=== PATIENT | female | born 1945 | race Caucasian/White ===

== ENCOUNTER 2017-08-14 21:33 | Observation (INO) | payer OTHER ==
[2017-08-14] MEDS ORDERED: NS 1,000 ML IV ONE (22:27)
--- NOTE | 2017-08-14 22:27 | EDPHY ---
H & P Stated Complaint: cold symtpoms x 4 days; had ES APAP 2 hrs [employer] HPI/ROS: HPI CHIEF COMPLAINT: Cough, fever, muscle aches, joint pain x4 days, fatigue HISTORY OF PRESENT ILLNESS: Patient is a 72-year-old female she is visiting from [place] her daughter lives here, she came here to get out of the way of the her cane, she presents emergency room with 4 days of feeling ill. She states for the past 4 days she has had progressively worsening shortness of breath, cough that is productive in nature brown sputum, fever, joint pain, muscle aches, generalized weakness and fatigue. Past Medical History: Hypertension, glaucoma, asthma Past Surgical History: No recent surgery Social History: Denies daily use drugs alcohol tobacco. Resides in [place]. [place] Family History: Noncontributory ROS REVIEW OF SYSTEMS: A comprehensive 10 point review of systems is otherwise negative aside from elements mentioned in the history of present illness. Exam Constitutional appears nontoxic, triage nursing summary reviewed, vital signs reviewed, awake/alert. Noted be hypoxic and tachycardic at triage. Eyes normal conjunctivae and sclera, EOMI, PERRLA. HENT normal inspection, atraumatic, moist mucus membranes, no epistaxis, neck supple/ no meningismus, no raccoon eyes. Respiratory faint wheezing bilaterally decreased breath sounds bilaterally, clear to auscultation bilaterally, normal breath sounds, no respiratory distress Cardiovascular tachycardic, regular rhythm, no murmur, no edema, distal pulses normal. Gastrointestinal soft, non-tender, no rebound, no guarding, normal bowel sounds, no distension, no pulsatile mass. Genitourinary no CVA tenderness. Musculoskeletal no midline vertebral tenderness, full range of motion, no calf swelling, no tenderness of extremities, no meningismus, good pulses, neurovascularly intact. Skin pink, warm, & dry, no rash, skin atraumatic. Neurologic awake, alert and oriented x 3, AAOx3, moves all 4 extremities equally, motor intact, sensory intact, CN II-XII intact, normal cerebellar, normal vision, normal speech. Psychiatric normal mood/affect. Heme/Lymph/Immune no lymphadenopathy. Differential Diagnosis: Includes but is not limited to in a particular order sepsis, septic shock, bacteremia, pneumonia, CHF, influenza Medical Decision Making: Plan for this patient full cardiac rehabilitation specialist, IV establishment, IV fluid bolus, DuoNeb breathing treatment, chest x-ray two view , supplemental oxygen, blood cultures, lactic acid. Re-evaluation: 2353: This patient is to be admitted for hypoxia bronchitis and wheezing on exam. She remains hemodynamically stable. I have ordered her IV fluids, IV Rocephin IV azithromycin. A respiratory panel has been sent. Including influenza. Chest x-ray does not show any acute pneumonia. Given her age, fever , hypoxia she will be admitted to the hospital for pulmonary care. She has agreed for this plan. No evidence severe sepsis. She is not hypotensive. Lactic acid is not elevated. Source: Patient - Personal History Current Tetanus/Diphtheria Vaccine: Yes - Medical/Surgical History Hx Asthma: Yes Hx Chronic Respiratory Disease: No Hx Diabetes: No Hx Cardiac Disease: No Hx Renal Disease: No Hx Cirrhosis: No Hx Splenectomy or Spleen Trauma: No Other PMH: PSHx: cholecystectomy, L knee replacement, tonsillectomy. PMHx: asthma, glaucoma, arthritis, HTN - Social History Smoking Status: Never smoked Constitutional: Initial Vital Signs Temperature (C) 38.9 C H 08/14/17 21:38 Heart Rate 115 H 08/14/17 21:38 Respiratory Rate 14 08/14/17 21:38 Blood Pressure 176/116 H 08/14/17 21:38 O2 Sat (%) 91 L 08/14/17 21:38 O2 Delivery Mode Room Air O2 (L/minute) 2 Allergies/Adverse Reactions: aspirin Allergy (Verified 08/14/17 21:36) Home Medications: Medication Instructions Recorded Breo Ellipta 100-25 Mcg INH 08/14/17 Cartia Xt 08/14/17 Carvedilol 08/14/17 Levothyroxine 08/14/17 Micardis 08/14/17 Omeprazole 08/14/17 Spiriva Inhaler (RX) 08/14/17 Travatan Z 08/14/17 Ventolin Hfa Inhaler 08/14/17 Zafirlukast 08/14/17 traMADol 08/14/17 Medical Decision Making - Diagnostics Imaging Results: Imaging Impressions Chest X-Ray 08/14/17 22:28 Impression: Borderline-cardiomegaly, with mild perihilar bronchitis, but no focal infiltrate. - Data Points Laboratory Results: Laboratory Results 08/14/17 22:05 08/14/17 22:05 08/14/17 08/14/17 08/14/17 23:26 22:45 22:05 WBC RBC Hgb Hct MCV MCH MCHC RDW Plt Count MPV Neut % (Auto) Lymph % (Auto) [place] % (Auto) Eos % (Auto) Baso % (Auto) Nucleat RBC Rel Count Absolute Neuts (auto) Absolute Lymphs (auto) Absolute Monos (auto) Absolute Eos (auto) Absolute Basos (auto) Absolute Nucleated RBC Immature Gran % Immature Gran # PT INR APTT VBG Lactic Acid 0.8 mmol/L mmol/L (0.7-2.1) Sodium 135 mEq/L mEq/L (134-144) Potassium 4.0 mEq/L mEq/L (3.5-5.2) Chloride 103 mEq/L mEq/L (97-110) Carbon Dioxide 19 mEq/l L mEq/l (22-31) Anion Gap 13 mEq/L mEq/L (8-16) BUN 12 mg/dL mg/dL (7-23) Creatinine 0.6 mg/dL mg/dL (0.6-1.0) Estimated GFR > 60 Glucose 98 mg/dL mg/dL (70-100) Calcium 9.0 mg/dL mg/dL (8.5-10.4) Creatine Kinase 63 IU/L IU/L (0-156) CK-MB (CK-2) Fraction 0.72 ng/mL ng/mL (0.00-3.19) Troponin I < 0.012 ng/mL ng/mL (0.000-0.034) NT-Pro-B Natriuret Pep 54 pg/mL pg/mL (0-125) Influenza A,B Rapid Cancelled 08/14/17 08/14/17 22:05 22:05 WBC 7.76 10^3/uL 10^3/uL (3.80-9.50) RBC 4.04 10^6/uL L 10^6/uL (4.18-5.33) Hgb 13.4 g/dL g/dL (12.6-16.3) Hct 38.6 % % (38.0-47.0) MCV 95.5 fL fL (81.5-99.8) MCH 33.2 pg pg (27.9-34.1) MCHC 34.7 g/dL g/dL (32.4-36.7) RDW 13.0 % % (11.5-15.2) Plt Count 287 10^3/uL 10^3/uL (150-400) MPV 9.3 fL fL (8.7-11.7) Neut % (Auto) 51.0 % % (39.3-74.2) Lymph % (Auto) 32.9 % % (15.0-45.0) [place] % (Auto) 13.4 % H % (4.5-13.0) Eos % (Auto) 1.8 % % (0.6-7.6) Baso % (Auto) 0.5 % % (0.3-1.7) Nucleat RBC Rel Count 0.0 % % (0.0-0.2) Absolute Neuts (auto) 3.96 10^3/uL 10^3/uL (1.70-6.50) Absolute Lymphs (auto) 2.55 10^3/uL 10^3/uL (1.00-3.00) Absolute Monos (auto) 1.04 10^3/uL H 10^3/uL (0.30-0.80) Absolute Eos (auto) 0.14 10^3/uL 10^3/uL (0.03-0.40) Absolute Basos (auto) 0.04 10^3/uL 10^3/uL (0.02-0.10) Absolute Nucleated RBC 0.00 10^3/uL 10^3/uL (0-0.01) Immature Gran % 0.4 % % (0.0-1.1) Immature Gran # 0.03 10^3/uL 10^3/uL (0.00-0.10) PT 13.6 SEC SEC (12.0-15.0) INR 1.05 (0.83-1.16) APTT 35.4 SEC SEC (23.0-38.0) VBG Lactic Acid Sodium Potassium Chloride Carbon Dioxide Anion Gap BUN Creatinine Estimated GFR Glucose Calcium Creatine Kinase CK-MB (CK-2) Fraction Troponin I NT-Pro-B Natriuret Pep Influenza A,B Rapid Medications Given: Discontinued Medications Albuterol/Ipratropium (Duoneb) 3 ml IH EDNOW ONE Stop: 08/14/17 22:45 Last Admin: 08/14/17 22:51 Dose: 3 ml Sodium Chloride (Ns) 1,000 mls @ 0 mls/hr IV EDNOW ONE; Wide Open PRN Reason: Protocol Stop: 08/14/17 22:28 Last Admin: 08/14/17 22:39 Dose: 1,000 mls Ibuprofen (Motrin) 800 mg PO EDNOW ONE Stop: 08/14/17 22:29 Last Admin: 08/14/17 22:37 Dose: Not Given Departure - Departure Disposition: [facility] Acute Clinical Impression: Hypoxia, Bronchitis Fever Qualifiers: Fever type: unspecified Qualified Code(s): R50.9 - Fever, unspecified Condition: Fair Referrals: [facility] [Other] - As per Instructions
[2017-08-14] MEDS ORDERED: IBUPROFEN 200 MG TAB PO ONE (22:28)
[2017-08-14 22:35] LABS: % IMMATURE GRANULYOCYTES 0.4 % (0.0-1.1); ABSOLUTE IMMATURE GRANULOCYTES 0.03 10^3/uL (0.00-0.10); ADD DIFF? NO; ADD MORPH? NO; ADD SCAN? NO; ATYPICAL LYMPHOCYTE FLAG 20 (0-99); FRAGMENT RBC FLAG 0 (0-99); HEMATOCRIT 38.6 % (38.0-47.0); HEMOGLOBIN 13.4 g/dL (12.6-16.3); LEFT SHIFT FLG 0 (0-99); LIPEMIA HEMOLYSIS FLAG 90 (0-99); MEAN CELL HEMOGLOBIN 33.2 pg (27.9-34.1); MEAN CELL HEMOGLOBIN CONCENTR. 34.7 g/dL (32.4-36.7); MEAN CELL VOLUME 95.5 fL (81.5-99.8); MEAN PLATELET VOLUME 9.3 fL (8.7-11.7); PLATELET CLUMPS FLAG 0 (0-99); PLATELET COUNT 287 10^3/uL (150-400); RED BLOOD CELL COUNT 4.04 10^6/uL (4.18-5.33)
[2017-08-14 22:42] LABS: ANION GAP 13 mEq/L (8-16); CARBON DIOXIDE 19 mEq/l (22-31); CHLORIDE 103 mEq/L (97-110); CREATININE 0.6 mg/dL (0.6-1.0); GLOMERULAR FILTRATION RATE > 60; GLUCOSE 98 mg/dL (70-100); SODIUM 135 mEq/L (134-144)
[2017-08-14 22:43] LABS: INR 1.05 (0.83-1.16); PROTIME(PATIENT) 13.6 SEC (12.0-15.0)
[2017-08-14 22:44] LABS: APTT 35.4 SEC (23.0-38.0)
[2017-08-14] MEDS ORDERED: IPRATROPIUM/ALBUTEROL 3 ML DEYVIAL IH ONE (22:44)
[2017-08-14 22:54] LABS: CREATINE KINASE-MB FRACTION 0.72 ng/mL (0.00-3.19); TROPONIN I < 0.012 ng/mL (0.000-0.034)
--- NOTE | 2017-08-14 22:56 | CPEKG ---
Heart Rate: 106 RR Interval: 566 P-R Interval: 176 QRSD Interval: 88 QT Interval: 344 QTC Interval: 457 P [place]: 60 QRS [place]: 15 T Wave [place]: 35 EKG Severity - OTHERWISE NORMAL ECG - EKG Impression: SINUS TACHYCARDIA Electronically Signed By: Jean Pierre Conway 15-Aug-2017 07:02:44
[2017-08-14] MEDS ORDERED: AZITHROMYCIN IV 500 MG in D5W 250 ML IV ONE (23:46)
[2017-08-14] MEDS ORDERED: methylPREDNISolone SOD SUCC 125 MG/2 ML VIAL IVP ONE (23:46)
[2017-08-15] MEDS ORDERED: ALBUTEROL 3 ML DEYVIAL IH PRN (02:00)
[2017-08-15] MEDS ORDERED: ONDANSETRON DISINTEGRATING 4 MG TAB PO PRN (02:00)
[2017-08-15] MEDS ORDERED: diphenhydrAMINE 25 MG CAP PO PRN (02:00)
[2017-08-15] MEDS ORDERED: ACETAMINOPHEN 325 MG TAB PO PRN (02:00)
[2017-08-15] MEDS ORDERED: LORazepam 0.5 MG TAB PO PRN (02:00)
[2017-08-15] MEDS ORDERED: ONDANSETRON 4 MG/2 ML VIAL IVP PRN (02:00)
[2017-08-15] MEDS ORDERED: NS 1,000 ML IV SCH (02:00)
[2017-08-15] MEDS ORDERED: HYDROCODONE/APAP 5/325 TAB PO PRN (02:00)
[2017-08-15 02:18] LABS: COLOR PALE YELLOW; LEUKOCYTE ESTERASE,URINE NEGATIVE (NEGATIVE); NITRITE,URINE NEGATIVE (NEGATIVE)
[2017-08-15] MEDS ORDERED: BUDESONIDE 0.25MG/2ML DEYVIAL (5/POUCH) IH SCH (04:15)
[2017-08-15] MEDS: OSELTAMIVIR PHOSPHATE 75 MG CAP PO SCH ×3 (04:31→18:02)
[2017-08-15] MEDS: predniSONE 20 MG TAB PO SCH ×2 (04:31→08:47)
[2017-08-15] MEDS: BUDESONIDE 0.5 MG/2 ML AMPUL.NEB IH SCH ×3 (05:31→22:30)
[2017-08-15 05:41] LABS: % IMMATURE GRANULYOCYTES 0.4 % (0.0-1.1); ABSOLUTE IMMATURE GRANULOCYTES 0.02 10^3/uL (0.00-0.10); ADD DIFF? NO; ADD MORPH? NO; ADD SCAN? NO; ATYPICAL LYMPHOCYTE FLAG 10 (0-99); FRAGMENT RBC FLAG 0 (0-99); HEMATOCRIT 36.9 % (38.0-47.0); HEMOGLOBIN 12.8 g/dL (12.6-16.3); LEFT SHIFT FLG 0 (0-99); LIPEMIA HEMOLYSIS FLAG 90 (0-99); MEAN CELL HEMOGLOBIN 33.3 pg (27.9-34.1); MEAN CELL HEMOGLOBIN CONCENTR. 34.7 g/dL (32.4-36.7); MEAN CELL VOLUME 96.1 fL (81.5-99.8); MEAN PLATELET VOLUME 9.3 fL (8.7-11.7); PLATELET CLUMPS FLAG 0 (0-99); PLATELET COUNT 244 10^3/uL (150-400); RED BLOOD CELL COUNT 3.84 10^6/uL (4.18-5.33); RED CELL DISTRIBUTION WIDTH 13.1 % (11.5-15.2)
[2017-08-15 05:58] LABS: ANION GAP 11 mEq/L (8-16); CALCIUM 8.5 mg/dL (8.5-10.4); CARBON DIOXIDE 21 mEq/l (22-31); CHLORIDE 107 mEq/L (97-110); CREATININE 0.6 mg/dL (0.6-1.0); GLOMERULAR FILTRATION RATE > 60; GLUCOSE 190 mg/dL (70-100); POTASSIUM 4.2 mEq/L (3.5-5.2); SODIUM 139 mEq/L (134-144)
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
[2017-08-15] MEDS: ENOXAPARIN 40 MG/0.4 ML SYR SC SCH (08:47)
[2017-08-15] MEDS ORDERED: NON-FORMULARY NEW DRUG (Albuterol 2 PUFFS) IH PRN (09:18)
[2017-08-15] MEDS ORDERED: traMADol 50 MG TAB PO PRN (09:18)
[2017-08-15] MEDS ORDERED: ALBUTEROL 200 PUFFS/18 GM MDI IH PRN (09:29)
[2017-08-15] MEDS ORDERED: CARBOXYMETHYLCELLULOSE 0.5% 0.4 ML DROPERETTE EACHEYE PRN (09:35)
[2017-08-15] MEDS: Fluticasone/Vilanterol [Breo Ellipta 200-25 Mcg Inh] 1 EACH IH SCH (10:19)
[2017-08-15] MEDS: PANTOPRAZOLE SODIUM 40 MG TAB PO SCH (10:22)
[2017-08-15] MEDS: CARVEDILOL 3.125 MG TAB PO SCH ×2 (10:22→18:02)
[2017-08-15] MEDS: LEVOTHYROXINE 25 MCG TAB PO SCH (10:22)
[2017-08-15] MEDS: ZAFIRLUKAST 20 MG PO SCH ×2 (10:24→20:35)
[2017-08-15] MEDS ORDERED: guaiFENesin/CODEINE PHOS 10 ML UDCUP PO PRN (11:22)
[2017-08-15] MEDS ORDERED: BENZONATATE 100 MG CAP PO PRN (11:22)
[2017-08-15] MEDS: TELMISARTAN 40 MG TAB PO SCH (11:45)
[2017-08-15] MEDS: guaiFENesin 600 MG TAB.ER PO SCH ×2 (11:52→20:35)
[2017-08-15] MEDS: IPRATROPIUM/ALBUTEROL 3 ML DEYVIAL IH SCH ×3 (14:17→22:02)
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
--- NOTE | 2017-08-15 18:54 | HOSPPROG ---
Hospitalist Progress Note Assessment/Plan: Assessment: 72 yo F p/w acute asthma exacerbation in setting of influenza B infection Plan: Prolonged service in addition to the time spent on the original H&P encounter by Dr. Bolden, direct patient care, face to face with patient at bedside, from 10 :20 a.m. - 10:55 a.m. (35 minutes), addressing the following: - resp exam demonstrates improvement in exp wheeze s/p albuterol nebs - cont scheduled duonebs since patient has ongoing dyspnea on exertion w/ hypoxia - cont tamiflu bid, stop CTX (CXR w/o focal infiltrates, personally interpreted) - cont pulmicort, hold spiriva, add guaif/codeine/tessalon/mucinex - cont pred 60 D#11/28 - patient encouraged to attempt to wean o2 and gauge pulm tolerance this afternoon - counseled patient she will need to establish primary care here in [place] for f/u. Subjective: anxious about leaving, feels tired Objective: Vital Signs Temp Pulse Resp BP Pulse Ox 36.9 C 94 20 155/96 H 91 L 08/15/17 15:16 08/15/17 18:29 08/15/17 18:29 08/15/17 15:16 08/15/17 18:29 Laboratory Results 08/15/17 05:30 08/15/17 05:30 08/14/17 08/15/17 08/16/17 05:59 05:59 05:59 Intake Total 1500 560 Output Total 600 Balance 900 560 PT 13.6 SEC (12.0-15.0) 08/14/17 22:05 INR 1.05 (0.83-1.16) 08/14/17 22:05 - Physical Exam Constitutional: not in pain, obese, uncomfortable Cardiovascular: regular rate and rhythym, no murmur, rub, or gallop Respiratory: no respiratory distress, no rales or rhonchi, clear to auscultation Gastrointestinal: normoactive bowel sounds, soft, non-tender abdomen, no palpable masses Neurologic: AAOx3 Psychiatric: interacting appropriately, not encephalopathic, thought process linear, anxious, No agitated ICD10 Worksheet Patient Problems: Problems Problem Status Onset Hypoxia Acute Fever Acute Bronchitis Acute
[2017-08-15] MEDS ORDERED: DILTIAZEM XR 240 MG CAP PO SCH (21:00)
[2017-08-15] MEDS ORDERED: TRAVOPROST Z 0.004% 2.5 ML OPHT.BTL EACHEYE SCH (21:00)
[2017-08-16] MEDS: IPRATROPIUM/ALBUTEROL 3 ML DEYVIAL IH SCH ×2 (05:45→12:07)
[2017-08-16] MEDS: LEVOTHYROXINE 25 MCG TAB PO SCH (05:58)
[2017-08-16] MEDS: ENOXAPARIN 40 MG/0.4 ML SYR SC SCH (08:15)
[2017-08-16 08:20] VITALS: BP 155/94; TEMP 97.9
[2017-08-16] MEDS: TELMISARTAN 40 MG TAB PO SCH (08:20)
[2017-08-16] MEDS: guaiFENesin 600 MG TAB.ER PO SCH (08:20)
[2017-08-16] MEDS: predniSONE 20 MG TAB PO SCH (08:20)
[2017-08-16] MEDS: OSELTAMIVIR PHOSPHATE 75 MG CAP PO SCH (08:21)
[2017-08-16] MEDS: CARVEDILOL 3.125 MG TAB PO SCH (08:21)
[2017-08-16] MEDS: PANTOPRAZOLE SODIUM 40 MG TAB PO SCH (08:21)
[2017-08-16] MEDS: ZAFIRLUKAST 20 MG PO SCH (08:22)
[2017-08-16] MEDS: Fluticasone/Vilanterol [Breo Ellipta 200-25 Mcg Inh] 1 EACH IH SCH (08:28)
--- NOTE | 2017-08-16 09:58 | PDDCSUM ---
Discharge Summary Discharge Summary: DISCHARGE SUMMARY FOLLOW-UP ITEMS: Arrange outpatient follow-up DATE OF ADMISSION: 08/15/2017 DATE OF DISCHARGE: 08/16/2017 DISCHARGE DIAGNOSES: 1. Acute asthma exacerbation 2. Influenza B infection CONSULTATIONS: None PROCEDURES / IMAGING: Chest x-ray demonstrating no focal infiltrate CHIEF COMPLAINT: Acute cough and shortness of breath SUBJECTIVE: Patient is feeling well at time of discharge, she responds well to albuterol PHYSICAL EXAM ON DISCHARGE: Systolic blood pressure 150, heart rate 80, afebrile overnight, satting well room air, lungs are clear to auscultation bilaterally without any expiratory wheezes or bronchial breath sounds LABS ON DISCHARGE: Serum bicarbonate 21, influenza B positive, white blood cell count 5600 urinalysis normal, creatinine 0.6 HOSPITAL COURSE BY PROBLEM: 1. Acute asthma exacerbation. Patient has underlying asthma she presented with acute exacerbation wheezes and bronchial breath sounds in the setting of influenza B precipitant. Patient also experienced profound shortness of breath and hypoxia, requiring supple, scheduled DuoNeb treatments, initiation of steroids and treatment for her underlying flu. The patient has all the required breathing medications at home at time of discharge, including albuterol nebulizer. She will receive a prescription for total of 5 days of prednisone as well as symptomatic care with Mucinex and Tessalon Perles. I recommended that she establish care here in [place] at [facility]. Influenza B infection. Positive on PCR, initiated on Tamiflu, 5 days total. DISCHARGE MEDICATIONS: Please see official discharge medication reconciliation sheet in chart , Tamiflu , prednisone 60, Tessalon Perles, guaifenesin, continue all other home medications. DISCHARGE INSTRUCTIONS: Please follow up at [facility].
[2017-08-16] MEDS: BUDESONIDE 0.5 MG/2 ML AMPUL.NEB IH SCH (12:07)
[2017-08-16 12:12] VITALS: PULSE 86; RESP 18; O2SAT 92
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
== END 2017-08-16 13:58 | disposition home or self-care (01) ==
LOC: INTOOBSV 23:52 → F2W 08-15 00:56
PROVIDERS: ADMIT Family Medicine; ATTEND Internal Medicine
DX: J45.901 Unspecified asthma with (acute) exacerbation (principal); J11.1 Influenza due to unidentified influenza virus with other respiratory manifestations; I10 Essential (primary) hypertension; E03.9 Hypothyroidism, unspecified; H40.9 Unspecified glaucoma; K21.9 Gastro-esophageal reflux disease without esophagitis; E66.9 Obesity, unspecified; Z68.32 Body mass index [BMI] 32.0-32.9, adult; Z96.652 Presence of left artificial knee joint
CPT/HCPCS: 71020; 93005; 96361; 96365; 96368; 96375; 99285; G0378; J0456; J0696; J1650; J7626